=== PATIENT | female | born 1960 | race Caucasian/White ===

== ENCOUNTER 2021-10-03 08:38 | Day surgery (SDC) | payer OTHER ==
[~2021-10-03 08:38] MED LIST: BISOPROL PO; ZIAC 5-6.25 MG1 EACH PO
== END 2021-10-03 17:20 | disposition home or self-care (01) ==
LOC: CIR.AMB 08:38
PROVIDERS: ATTEND Orthopaedic Surgery
DX: S42.201A Unspecified fracture of upper end of right humerus, initial encounter for closed fracture (principal)